=== PATIENT | male | born 1965 | race Caucasian/White ===

== ENCOUNTER 2024-07-19 09:15 | Outpatient (RCR) | payer BC, SELFPAY | END 2024-08-30 10:31 | disposition home or self-care (01) | LOC: ANHDMC 09:15 | PROVIDERS: Visit Provider Internal Medicine | DX: E11.9 Type 2 diabetes mellitus without complications (principal); I10 Essential (primary) hypertension; Z71.89 Other specified counseling | CPT/HCPCS: G0108 ==

== ENCOUNTER 2025-01-11 09:15 | Outpatient (RCR) | payer BC, SELFPAY | END 2025-01-12 11:47 | disposition home or self-care (01) | LOC: ANHDMC 09:15 | PROVIDERS: Visit Provider Internal Medicine | DX: E11.65 Type 2 diabetes mellitus with hyperglycemia (principal); Z71.89 Other specified counseling | CPT/HCPCS: G0108 ==